=== PATIENT | female | born 1945 | race Caucasian/White ===

== ENCOUNTER 2020-11-20 17:56 | Inpatient (IN) | payer OTHER ==
[~2020-11-20] VITALS: Ht 160 cm; Wt 65.8 kg
[2020-11-22] MEDS ORDERED: PANTOPRAZOLE SO40 MG (08:14)
[2020-11-22] MEDS ORDERED: VITAMIN D3125 MCG (08:14)
[2020-11-22] MEDS ORDERED: ROSUVASTATIN CA20 MG (08:14)
[2020-11-22] MEDS ORDERED: GLIMEPIRIDE2 M1 (08:14)
[2020-11-22] MEDS ORDERED: VITAMIN B-12500 MCG (08:15)
[2020-11-22] MEDS ORDERED: FAMOTIDINE20 MG (08:15)
[2020-11-22] MEDS ORDERED: CHLORTHALIDONE25 MG (08:15)
[2020-11-22] MEDS ORDERED: DAFLONEX-XL 11300 MG (08:15)
== END 2020-11-26 10:23 | disposition home or self-care (01) | DRG 177 ==
LOC: ER 17:56 → SEC-K 11-21 00:31 → MEDJ 11-21 00:31
PROVIDERS: ADMIT Internal Medicine; ATTEND Internal Medicine
PROC: B24BZZZ Ultrasonography of Heart with Aorta (ICD-10-PCS; 2020-11-20)
PROC: B345ZZZ Ultrasonography of Bilateral Common Carotid Arteries (ICD-10-PCS; 2020-11-20)
PROC: B342ZZZ Ultrasonography of Left Subclavian Artery (ICD-10-PCS; 2020-11-20)
PROC: 8E0ZXY6 Isolation (ICD-10-PCS; 2020-11-20)
PROC: 4A033R1 Measurement of Arterial Saturation, Peripheral, Percutaneous Approach (ICD-10-PCS; 2020-11-20)
PROC: BT43ZZZ Ultrasonography of Bilateral Kidneys (ICD-10-PCS; 2020-11-20)
PROC: CB2YYZZ Tomographic (Tomo) Nuclear Medicine Imaging of Respiratory System using Other Radionuclide (ICD-10-PCS; 2020-11-20)
PROC: BW28ZZZ Computerized Tomography (CT Scan) of Head (ICD-10-PCS; 2020-11-20)
PROC: XW033E5 Introduction of Remdesivir Anti-infective into Peripheral Vein, Percutaneous Approach, New Technology Group 5 (ICD-10-PCS; principal; 2020-11-21)
PROC: 4A12X4Z Monitoring of Cardiac Electrical Activity, External Approach (ICD-10-PCS; 2020-11-21)
PROC: B030ZZZ Magnetic Resonance Imaging (MRI) of Brain (ICD-10-PCS; 2020-11-22)
DX: U07.1 COVID-19 (principal); J12.82 Pneumonia due to coronavirus disease 2019; N17.8 Other acute kidney failure; N39.0 Urinary tract infection, site not specified; I13.10 Hypertensive heart and chronic kidney disease without heart failure, with stage 1 through stage 4 chronic kidney disease, or unspecified chronic kidney disease; N18.9 Chronic kidney disease, unspecified; E11.40 Type 2 diabetes mellitus with diabetic neuropathy, unspecified; J44.9 Chronic obstructive pulmonary disease, unspecified; Z20.822 Contact with and (suspected) exposure to COVID-19
CPT/HCPCS: 70544